=== PATIENT | female | born 1945 | race Two or more races ===

== ENCOUNTER → 2017-06-12 | Emergency (ER) | payer OTHER ==
[~2017-06-12] VITALS: Ht 152.4 cm; Wt 54.9 kg
[~2017-06-12] MED LIST: INTESTINEX1 CAP PO; LEVSIN/SL0.125 MG SL; SIMVASTATIN10 MG; SYNTHROID; ZANTAC150 M3 PO; ZESTRIL20 MG
== END | disposition home or self-care (01) ==
LOC: ER 20:22
DX: J11.1 Influenza due to unidentified influenza virus with other respiratory manifestations (principal)

== ENCOUNTER 2017-08-16 09:09 | Outpatient (CLI) | payer OTHER | END 2017-08-16 09:28 | disposition home or self-care (01) | LOC: TOM 09:09 | DX: K57.32 Diverticulitis of large intestine without perforation or abscess without bleeding (principal); R10.30 Lower abdominal pain, unspecified ==

== ENCOUNTER 2020-03-07 07:17 | Outpatient (CLI) | payer OTHER | END 2020-03-07 07:27 | disposition home or self-care (01) | LOC: NUCLEAR 07:17 | PROVIDERS: ATTEND Internal Medicine Cardiovascular Disease | DX: I25.6 Silent myocardial ischemia (principal); R07.2 Precordial pain; R07.89 Other chest pain | CPT/HCPCS: 78452; 93017; A9500 ==

== ENCOUNTER 2020-11-25 08:39 | Day surgery (SDC) | payer OTHER | END 2020-11-25 14:30 | disposition home or self-care (01) | LOC: AMB-ENDOS 08:39 | PROVIDERS: ATTEND Surgery | DX: D12.0 Benign neoplasm of cecum (principal); K58.8 Other irritable bowel syndrome; K57.30 Diverticulosis of large intestine without perforation or abscess without bleeding; Z20.822 Contact with and (suspected) exposure to COVID-19 ==

== ENCOUNTER 2022-11-09 17:59 | Emergency (ER) | payer OTHER ==
[~2022-11-09] VITALS: Ht 154.9 cm; Wt 52.6 kg
== END 2022-11-10 00:24 | disposition home or self-care (01) ==
LOC: ER 17:59
DX: R10.30 Lower abdominal pain, unspecified (principal); Z88.1 Allergy status to other antibiotic agents; I10 Essential (primary) hypertension